=== PATIENT | female | born 1975 | race Caucasian/White ===

== ENCOUNTER → 2017-05-28 | Outpatient (CLI) | payer BC ==
--- NOTE | 2017-05-28 13:11 | MM ---
Reason for exam: follow-up at short interval from prior study. Last mammogram was performed 10 months ago. History: Family history of breast cancer in maternal grandmother. Took hormonal contraceptives for 3 years. Physical Findings: Nurse did not find any significant physical abnormalities on exam. MG Diagnostic Mammo RT w CAD CC and MLO view(s) were taken of the right breast. Prior study comparison: July 24, 2016, right breast MG work up mamm w CAD RT. July 20, 2016, bilateral MG screening mammo w CAD. November 04, 2013, bilateral digital screening mammo w/CAD. The breast tissue is heterogeneously dense. This may lower the sensitivity of mammography. Persistent asymmetry 5-6cm from nipple medial right breast. These results were verbally communicated with the patient and result sheet given to the patient on 05/28/17. ASSESSMENT: Incomplete: need additional imaging evaluation, BI-RAD 0 RECOMMENDATION: Ultrasound of the right breast. (Medial right breast).
--- NOTE | 2017-05-28 13:23 | USB ---
Reason for exam: additional evaluation requested from abnormal screening. History: Family history of breast cancer in maternal grandmother. Took hormonal contraceptives for 3 years. US Breast Limited RT Right breast ultrasound demonstrates a ductal at the nipple, a 0.9 x 1.0 x 0.4cm hypoechoic lesion at 5 o'clock, a tiny cluster too small to characterize at 1 0'clock and anechoic with increased through transmission corresponds to mammographic finding. These results were verbally communicated with the patient and result sheet given to the patient on 05/28/17. ASSESSMENT: Benign, BI-RAD 2 RECOMMENDATION: Routine screening mammogram of both breasts in 2 months. Back on schedule, July 2017.
== END | disposition home or self-care (01) ==
LOC: RADMAMWWP 09:02
PROVIDERS: ATTEND Family Medicine
DX: R92.2 Inconclusive mammogram (principal)
CPT/HCPCS: 76642; G0206